=== PATIENT | male | born 1995 | race Caucasian/White ===

== ENCOUNTER 2020-10-12 11:14 | Emergency (ER) | payer OTHER ==
[~2020-10-12] VITALS: Ht 185.4 cm; Wt 89.0 kg
--- NOTE | 2020-10-12 13:21 | REP ---
INDICATION: crush injury to pinky. COMPARISON: None. TECHNIQUE: Four views FINDINGS: No acute fracture or destructive osseous lesion. IMPRESSION: No acute bony abnormality <Electronically signed by Jason Alvarenga > 10/12/20 [id number]
[2020-10-12] MEDS ORDERED: LIDOCAINE 1% MDV 20ML VIAL SC ONE (15:30)
[2020-10-12 16:25] VITALS: BP 122/71
== END 2020-10-12 16:27 | disposition home or self-care (01) ==
LOC: M ED 11:14
DX: S61.216A Laceration without foreign body of right little finger without damage to nail, initial encounter (principal); W20.8XXA Other cause of strike by thrown, projected or falling object, initial encounter; Y92.318 Other athletic court as the place of occurrence of the external cause; Y93.B3 Activity, free weights; Y99.8 Other external cause status

== ENCOUNTER 2020-10-22 20:33 | Emergency (ER) | payer OTHER ==
[~2020-10-22] VITALS: Ht 182.9 cm; Wt 89.1 kg
[2020-10-22 20:34] VITALS: BP 131/72
== END 2020-10-23 00:25 | disposition left against medical advice (07) ==
LOC: M ED 20:33
DX: Z53.29 Procedure and treatment not carried out because of patient's decision for other reasons (principal)

== ENCOUNTER 2022-04-02 07:17 | Emergency (ER) | payer OTHER ==
[~2022-04-02] VITALS: Ht 185.4 cm; Wt 94.5 kg
[2022-04-02] MEDS ORDERED: ONDANSETRON 4MG ORAL DISINTEGRATING TAB PO ONE (09:45)
[2022-04-02] MEDS ORDERED: ONDA4TAB6 PO (12:09)
[2022-04-02 12:22] VITALS: BP 142/77
== END 2022-04-02 12:25 | disposition home or self-care (01) ==
LOC: M ED 10:30
DX: R11.2 Nausea with vomiting, unspecified (principal); R19.7 Diarrhea, unspecified; Z79.83 Long term (current) use of bisphosphonates

== ENCOUNTER 2022-05-16 11:05 | Emergency (ER) | payer OTHER ==
[~2022-05-16] VITALS: Ht 185.4 cm; Wt 96.6 kg
[~2022-05-16 11:05] MED LIST: ONDA4TAB6 PO
[2022-05-16 11:07] VITALS: BP 125/70
== END 2022-05-16 14:50 | disposition home or self-care (01) ==
LOC: M ED 11:05
DX: N50.3 Cyst of epididymis (principal); N43.3 Hydrocele, unspecified